=== PATIENT | female | born 1945 | race Caucasian/White ===

== ENCOUNTER 2017-06-24 09:56 | Emergency (ER) | payer MEDICARE, OTHER ==
[~2017-06-24] VITALS: Ht 154.9 cm; Wt 66.0 kg
[~2017-06-24 09:56] MED LIST: ATOR40TA78 PO; CEFD300C37 PO; CEPH-376 PO; FERR325T18 PO; GABA600T2 PO; GLIP10TA13 PO; HYDR-3240 PO; INSU100C SQ-INSULIN; INSU100I28 SQ-INSULIN; INSU100V5 SQ-INSULIN; INSU100V8 SQ; LEVO50TA PO; LEVO75TA PO; LISI-167 PO; TRAZ50TA18 PO; vitamin b12 PO
[2017-06-24 09:59] VITALS: BP 154/72
[2017-06-24] MEDS ORDERED: ALBUTEROL/IPRATROPIUM 2.5MG/0.5MG, 3 ML ONE (10:29)
[2017-06-24] MEDS ORDERED: ALBUTEROL/IPRATROPIUM 2.5MG/0.5MG, 3 ML NPPB ONE (10:30)
== END 2017-06-24 11:36 | disposition home or self-care (01) ==
LOC: ED 11:30
DX: J45.909 Unspecified asthma, uncomplicated (principal); E11.9 Type 2 diabetes mellitus without complications; A48.8 Other specified bacterial diseases; I25.10 Atherosclerotic heart disease of native coronary artery without angina pectoris
CPT/HCPCS: 71020; 82962; 94640; 99284; J7620

== ENCOUNTER 2020-01-07 11:16 | Emergency (ER) | payer MEDICARE, OTHER ==
[~2020-01-07] VITALS: Ht 154.9 cm; Wt 66.0 kg
[~2020-01-07 11:16] MED LIST changes: +ACET325T26 PO; +ACID1TAB7 PO; +BISA10SU4 PR; +CEFT2FRO2 IVPB; +FLUT1AER INH; -GABA600T2 PO; +GABA600T7 PO; +GLIP5TAB10 PO; +METH500T7 PO; +POLY17PO5 PO; +SENN-193 PO; +SERT25TA3 PO; +TRAM50TA2 PO; -TRAZ50TA18 PO; +TRAZ50TA66 PO
--- NOTE | 2020-01-07 12:13 | NUR ---
PT HAS MULTIPLE CO. PT HAS NO APPETITE AND HAS NOT BEEN TAKING MEDS "BECAUSE I DONT WANT TO" PT HAS BED BUGS. RN VISULIZED BUG CRAWLING ON SHEETS, PT HAS MULTIPLE BITES ON SHOULDERS, ARMS LEGS. DENIES CP OR SOB.
[2020-01-07 12:37] VITALS: BP 136/77
--- NOTE | 2020-01-07 12:38 | NUR ---
PT REFUSING TO USE SOAP AND WASH HER HAIR FOR BUGS. PT WANTS TO LEAVE. AWARE. OK W PT LEAVING.
== END 2020-01-07 13:22 | disposition left against medical advice (07) ==
LOC: ED 13:16
DX: L50.9 Urticaria, unspecified (principal); R11.2 Nausea with vomiting, unspecified; R63.0 Anorexia; R19.7 Diarrhea, unspecified; R94.31 Abnormal electrocardiogram [ECG] [EKG]; E11.9 Type 2 diabetes mellitus without complications
CPT/HCPCS: 93005; 99283

== ENCOUNTER 2020-03-02 15:33 | Emergency (ER) | payer MEDICARE, OTHER ==
[~2020-03-02] VITALS: Ht 154.9 cm; Wt 70.0 kg
--- NOTE | 2020-03-02 15:46 | NUR ---
BIB [facility] FROM HOME. PT C/O GENERAL FATIGUE OVER LAST FEW DAY AND WORSE TODAY. PT STATES SOMETIMES DIZZY WHEN AMBULATING. PER DIEM RN [facility]: PIV 20G RAC. PT CONNECTED TO MONITORING. CALL LIGHT IN REACH.
--- NOTE | 2020-03-02 15:57 | NUR ---
PT WEARING BASELINE OXYGEN 2L.
[2020-03-02 16:58] LABS: BASOPHILS # (AUTO) 0.03 x10^3/uL (0-0.1); BASOPHILS % (AUTO) 0 % (0-1); EOSINOPHILS # (AUTO) 0.16 x10^3/uL (0-0.4); EOSINOPHILS % (AUTO) 2 % (1-7); LYMPHOCYTES # (AUTO) 1.49 x10^3/uL (1-3.4); LYMPHOCYTES % (AUTO) 18 % (22-44); MD NO; MEAN CORPUSCULAR HEMOGLOBIN 32.5 pg (27.0-34.8); MEAN CORPUSCULAR HGB CONC 32.7 g/dL (32.4-35.8); MEAN CORPUSCULAR VOLUME 99.6 fL (80-100); MEAN PLATELET VOLUME 7.7 fL (7.4-10.4); MONOCYTES # (AUTO) 0.57 x10^3/uL (0.2-0.8); MONOCYTES % (AUTO) 7 % (2-9); NEUTROPHILS # (AUTO) 6.03 x10^3/uL (1.8-6.8); NEUTROPHILS % (AUTO) 73 % (42-75); PLATELET COUNT 281 x10^3/uL (130-400); RED BLOOD COUNT 3.57 x10^6/uL (3.82-5.3); RED CELL DISTRIBUTION WIDTH 14.2 % (9.6-15.2)
[2020-03-02 17:10] LABS: ALBUMIN 2.9 g/dL (3.4-5.0); ANION GAP 5 mmol/L (5-15); CALCIUM 8.5 mg/dL (8.5-10.1); CHLORIDE 106 mmol/L (98-107)
[2020-03-02 17:13] VITALS: BP 124/52
--- NOTE | 2020-03-02 17:15 | NUR ---
BEDSIDE COMMODE PROVIDED FOR PT TO PROVIDE URINE SAMPLE. UA COLLECTED AND TAKEN TO LAB.
[2020-03-02 17:20] LABS: ALANINE AMINOTRANSFERASE 23 U/L (12-78); ALKALINE PHOSPHATASE 113 U/L (45-117); BILIRUBIN,TOTAL 0.3 mg/dL (0.2-1.0); CREATININE 1.84 mg/dL (0.55-1.02); FREE T4 (FREE THYROXINE) 1.04 ng/dL (0.76-1.46); TOTAL PROTEIN 7.2 g/dL (6.4-8.2)
[2020-03-02 17:25] LABS: SALICYLATE LEVEL < 1.7 mg/dL (2.8-20.0)
[2020-03-02 17:26] LABS: MICROSCOPIC AUTO
[2020-03-02 17:37] LABS: AMPHETAMINE SCREEN, URINE Negative (Negative); BARBITURATE SCREEN, URINE Negative (Negative); BENZODIAZEPINE SCREEN, URINE Negative (Negative); CANNABINOID SCREEN, URINE Negative (Negative); COCAINE SCREEN, URINE Negative (Negative); METHADONE SCREEN, URINE Negative (Negative); OPIATE SCREEN, URINE Negative (Negative)
--- NOTE | 2020-03-02 17:47 | NUR ---
ALL RESULTS ARE BACK AT THIS TIME. CHART UP FOR RECHECK.
--- NOTE | 2020-03-02 18:01 | NUR ---
RECEIVED NEW ORDER FOR CT.
--- NOTE | 2020-03-02 18:28 | NUR ---
ALL RESULTS ARE BACK AT THIS TIME. CHART UP FOR RECHECK.
[2020-03-02] MEDS ORDERED: MECLIZINE CHEWABLE 25 MG TAB ONE (18:47)
[2020-03-02] MEDS ORDERED: MECLIZINE CHEWABLE 25 MG TAB PO ONE (19:00)
--- NOTE | 2020-03-02 19:34 | NUR ---
Break RN: patient able to ambulate without assistance. still having pain on her head and slight dizziness.
== END 2020-03-02 20:34 | disposition home or self-care (01) ==
LOC: ED 17:39
DX: R42 Dizziness and giddiness (principal); R53.1 Weakness; R53.83 Other fatigue; R51 Headache; I10 Essential (primary) hypertension; I25.2 Old myocardial infarction; I95.9 Hypotension, unspecified; J45.909 Unspecified asthma, uncomplicated; E11.65 Type 2 diabetes mellitus with hyperglycemia; Z86.73 Personal history of transient ischemic attack (TIA), and cerebral infarction without residual deficits; Z86.39 Personal history of other endocrine, nutritional and metabolic disease; Z90.710 Acquired absence of both cervix and uterus
CPT/HCPCS: 70450; 80053; 80307; 81001; 82962; 84439; 84443; 85025; 87086; 99284

== ENCOUNTER 2020-03-28 04:21 | Inpatient (IN) | payer MEDICARE, OTHER ==
[~2020-03-28] VITALS: Ht 175.3 cm; Wt 72.2 kg
--- NOTE | 2020-03-28 04:37 | NUR ---
PT BIB AMBULANCE FOR REPORTED 3 DAY FEVER FROM [facility]. PT IN GOWN IN [facility] AND PLACED ON 3L NC 02. PT EDUCATED ON ER PROCESS AND POC. PT ATTACHED TO VS MONITORS. VSS. PT HAS CALL LIGHT WITHIN REACH. AWAITING ERP AT THIS TIME.
[2020-03-28] MEDS ORDERED: SODIUM CHLORIDE FLUSH 10ML SYR IVF ONE (05:30)
[2020-03-28 05:50] LABS: BASOPHILS # (AUTO) 0.04 x10^3/uL (0-0.1); BASOPHILS % (AUTO) 0 % (0-1); EOSINOPHILS # (AUTO) 0.09 x10^3/uL (0-0.4); EOSINOPHILS % (AUTO) 1 % (1-7); LYMPHOCYTES # (AUTO) 1.13 x10^3/uL (1-3.4); LYMPHOCYTES % (AUTO) 7 % (22-44); MD NO; MEAN CORPUSCULAR HEMOGLOBIN 32.2 pg (27.0-34.8); MEAN CORPUSCULAR HGB CONC 33.2 g/dL (32.4-35.8); MEAN PLATELET VOLUME 7.3 fL (7.4-10.4); MONOCYTES # (AUTO) 1.06 x10^3/uL (0.2-0.8); MONOCYTES % (AUTO) 7 % (2-9); NEUTROPHILS # (AUTO) 14.04 x10^3/uL (1.8-6.8); NEUTROPHILS % (AUTO) 86 % (42-75); PLATELET COUNT 494 x10^3/uL (130-400); RED BLOOD COUNT 3.04 x10^6/uL (3.82-5.3); RED CELL DISTRIBUTION WIDTH 13.9 % (9.6-15.2)
[2020-03-28 05:58] LABS: ALANINE AMINOTRANSFERASE 16 U/L (12-78); ALBUMIN 1.7 g/dL (3.4-5.0); ANION GAP 9 mmol/L (5-15); CALCIUM 7.8 mg/dL (8.5-10.1); CHLORIDE 95 mmol/L (98-107); CREATININE 1.49 mg/dL (0.55-1.02)
--- NOTE | 2020-03-28 06:03 | NUR ---
PT ASLEEP IN [facility] AT THIS TIME; [place]. VSS AND UPDATED IN EMR. PT HAS CALL LIGHT WITHIN REACH AT THIS TIME.
[2020-03-28 06:08] LABS: ALKALINE PHOSPHATASE 123 U/L (45-117); BILIRUBIN,TOTAL 0.5 mg/dL (0.2-1.0); TOTAL PROTEIN 6.7 g/dL (6.4-8.2)
[2020-03-28] MEDS ORDERED: CEFTRIAXONE PMX 1GM/50ML 50 ML ONE (06:17)
[2020-03-28] MEDS ORDERED: NS + 40MEQ KCL 1,000 ML IV ONE (06:23)
[2020-03-28] MEDS ORDERED: NS + 40MEQ KCL 1,000 ML IV SCH (06:30)
[2020-03-28] MEDS ORDERED: CEFTRIAXONE PMX 1GM/50ML 50 ML IV ONE (06:30)
[2020-03-28 07:00] LABS: HCT (SEDRATE) 29.5 % (34.6-47.8)
[2020-03-28 07:11] LABS: C-REACTIVE PROTEIN, QUANT > 19.00 mg/dL (0.02-0.49)
--- NOTE | 2020-03-28 07:16 | NUR ---
RECEIVED REPORT FROM TORIE KRISHNA RN. PT RESTING ON [place]. NADN. TATE.
[2020-03-28 07:22] LABS: % IRON SATURATION 16 % (20-55); IRON LEVEL 21 mcg/dL (50-170); TOTAL IRON BINDING CAPACITY 133 mcg/dL (250-450)
--- NOTE | 2020-03-28 07:28 | NUR ---
REPORT GIVEN TO ARTURO TORRES RN. ALL QUESTIONS ANSWERED. AWAITING PT TRANSPORT.
[2020-03-28 07:45] VITALS: BP 139/80
[2020-03-28] MEDS: SODIUM CHLORIDE 0.9% 1,000 ML IV SCH ×2 (10:39→14:45)
[2020-03-28] MEDS ORDERED: hydrALAzine 20 MG/ML, 1ML IVPush PRN (11:00)
[2020-03-28] MEDS ORDERED: ONDANSETRON 2MG/ML, 2ML IVPush PRN (11:00)
[2020-03-28] MEDS: FLUTICASONE/VILANTEROL 100-25MCG/INH INH SCH ×2 (11:00→20:28)
[2020-03-28] MEDS ORDERED: KETOROLAC 30 MG/1 ML IVPush PRN (12:00)
[2020-03-28] MEDS ORDERED: MAGNESIUM SULFATE/D5W 100 ML IV ONE (13:30)
[2020-03-28 13:35] VITALS: BP 120/54
[2020-03-28] MEDS: methylPREDNISolone SOD SUCC 40 MG/ML IV SCH (14:39)
[2020-03-28] MEDS: INSULIN LISPRO 100 UNITS/ML, PEN SQ-INSULIN SCH ×3 (15:13→20:28)
[2020-03-28 16:16] LABS: MICROSCOPIC AUTO
[2020-03-28 20:09] VITALS: BP 169/79
[2020-03-28] MEDS: ATORVASTATIN 40 MG TABLET PO SCH (20:28)
[2020-03-28] MEDS: TRAZODONE 100MG TABLET PO PRN (20:32)
[2020-03-28 21:53] VITALS: BP 163/74
[2020-03-29 01:42] VITALS: BP 160/64
[2020-03-29] MEDS: SODIUM CHLORIDE 0.9% 1,000 ML IV SCH ×2 (03:54)
[2020-03-29 06:03] LABS: ANION GAP 7 mmol/L (5-15); CALCIUM 8.2 mg/dL (8.5-10.1); CHLORIDE 105 mmol/L (98-107); CREATININE 1.15 mg/dL (0.55-1.02)
[2020-03-29 06:04] LABS: MEAN CORPUSCULAR HEMOGLOBIN 32.3 pg (27.0-34.8); MEAN PLATELET VOLUME 7.4 fL (7.4-10.4); PLATELET COUNT 467 x10^3/uL (130-400); RED BLOOD COUNT 3.13 x10^6/uL (3.82-5.3); RED CELL DISTRIBUTION WIDTH 13.5 % (9.6-15.2)
[2020-03-29 06:33] LABS: BASOPHILS % (AUTO) 0 % (0-1); EOSINOPHILS # (AUTO) 0.08 x10^3/uL (0-0.4); EOSINOPHILS % (AUTO) 1 % (1-7); LYMPHOCYTES # (AUTO) 0.36 x10^3/uL (1-3.4); LYMPHOCYTES % (AUTO) 3 % (22-44); MD SCAN; MONOCYTES # (AUTO) 0.29 x10^3/uL (0.2-0.8); MONOCYTES % (AUTO) 2 % (2-9); NEUTROPHILS # (AUTO) 12.55 x10^3/uL (1.8-6.8); NEUTROPHILS % (AUTO) 95 % (42-75)
[2020-03-29 06:48] VITALS: BP 178/74
[2020-03-29] MEDS: SENNA/DOCUSATE TABLET PO SCH (08:55)
[2020-03-29] MEDS: CEFTRIAXONE PMX 1GM/50ML 50 ML IV SCH (08:56)
[2020-03-29] MEDS: LEVOTHYROXINE 75 MCG TABLET PO SCH (08:56)
[2020-03-29] MEDS: SERTRALINE 50MG TABLET PO SCH (08:56)
[2020-03-29] MEDS: INSULIN LISPRO 100 UNITS/ML, PEN SQ-INSULIN SCH ×4 (08:57→22:27)
[2020-03-29] MEDS ORDERED: AMLODIPINE 5 MG TABLET PO SCH (09:00)
[2020-03-29] MEDS ORDERED: LISINOPRIL 5 MG TABLET PO SCH ×2 (09:00)
[2020-03-29] MEDS: FLUTICASONE/VILANTEROL 100-25MCG/INH INH SCH ×2 (09:00→21:46)
[2020-03-29 12:31] VITALS: BP 127/64
[2020-03-29] MEDS: methylPREDNISolone SOD SUCC 40 MG/ML IV SCH (14:31)
[2020-03-29 19:10] VITALS: BP 160/77
[2020-03-29] MEDS ORDERED: GABAPENTIN 300 MG CAPSULE PO SCH (22:00)
[2020-03-29] MEDS: GABAPENTIN 300 MG CAPSULE PO SCH (22:22)
[2020-03-29] MEDS: ATORVASTATIN 40 MG TABLET PO SCH (22:22)
[2020-03-29] MEDS: TRAZODONE 100MG TABLET PO PRN (22:22)
[2020-03-29] MEDS: INSULIN GLARGINE 100 UNITS/ML, PEN SQ-INSULIN SCH (22:28)
[2020-03-30 01:11] VITALS: BP 164/74
[2020-03-30 07:08] VITALS: BP 158/68
[2020-03-30] MEDS: FLUTICASONE/VILANTEROL 100-25MCG/INH INH SCH ×2 (08:39→20:15)
[2020-03-30] MEDS: SENNA/DOCUSATE TABLET PO SCH (09:00)
[2020-03-30] MEDS: SERTRALINE 50MG TABLET PO SCH (09:20)
[2020-03-30] MEDS: LEVOTHYROXINE 75 MCG TABLET PO SCH (09:20)
[2020-03-30] MEDS: GABAPENTIN 300 MG CAPSULE PO SCH ×3 (09:20→21:40)
[2020-03-30] MEDS: AMLODIPINE 10 MG TAB PO SCH (09:20)
[2020-03-30] MEDS: CHOLECALCIFEROL 5,000u TAB PO SCH (09:20)
[2020-03-30] MEDS: CEFTRIAXONE PMX 1GM/50ML 50 ML IV SCH (09:21)
[2020-03-30] MEDS: LISINOPRIL 5 MG TABLET PO SCH ×2 (09:21→21:40)
[2020-03-30] MEDS: INSULIN LISPRO 100 UNITS/ML, PEN SQ-INSULIN SCH ×4 (09:22→21:43)
[2020-03-30] MEDS: INSULIN GLARGINE 100 UNITS/ML, PEN SQ-INSULIN SCH ×2 (09:23→21:42)
[2020-03-30 13:20] VITALS: BP 113/64
[2020-03-30 15:58] LABS: ANA SCREEN NEGATIVE (Negative)
[2020-03-30 19:32] VITALS: BP 128/74
[2020-03-30] MEDS: ATORVASTATIN 40 MG TABLET PO SCH (21:40)
[2020-03-30] MEDS: TRAZODONE 100MG TABLET PO PRN (21:51)
[2020-03-31 01:02] VITALS: BP 154/72
[2020-03-31 06:40] VITALS: BP 150/72
[2020-03-31] MEDS: FLUTICASONE/VILANTEROL 100-25MCG/INH INH SCH ×2 (08:30→20:26)
[2020-03-31] MEDS: CHOLECALCIFEROL 5,000u TAB PO SCH (08:38)
[2020-03-31] MEDS: CEFTRIAXONE PMX 1GM/50ML 50 ML IV SCH (08:38)
[2020-03-31] MEDS: LEVOTHYROXINE 75 MCG TABLET PO SCH (08:38)
[2020-03-31] MEDS: SENNA/DOCUSATE TABLET PO SCH (08:38)
[2020-03-31] MEDS: AMLODIPINE 10 MG TAB PO SCH (08:38)
[2020-03-31] MEDS: LISINOPRIL 5 MG TABLET PO SCH ×2 (08:38→21:08)
[2020-03-31] MEDS: GABAPENTIN 300 MG CAPSULE PO SCH ×3 (08:39→21:08)
[2020-03-31] MEDS: INSULIN GLARGINE 100 UNITS/ML, PEN SQ-INSULIN SCH ×2 (08:40→21:07)
[2020-03-31] MEDS: INSULIN LISPRO 100 UNITS/ML, PEN SQ-INSULIN SCH ×4 (08:40→21:08)
[2020-03-31] MEDS: SERTRALINE 50MG TABLET PO SCH (08:42)
[2020-03-31 12:21] VITALS: BP 133/64
[2020-03-31 18:21] VITALS: BP 158/70
[2020-03-31] MEDS: ATORVASTATIN 40 MG TABLET PO SCH (21:08)
[2020-03-31 21:09] VITALS: BP 170/69
[2020-04-01 00:38] VITALS: BP 132/69
[2020-04-01] MEDS: FLUTICASONE/VILANTEROL 100-25MCG/INH INH SCH ×2 (07:10→19:40)
[2020-04-01 07:27] VITALS: BP 127/63
[2020-04-01] MEDS: CHOLECALCIFEROL 5,000u TAB PO SCH (07:55)
[2020-04-01] MEDS: CEFTRIAXONE PMX 1GM/50ML 50 ML IV SCH (07:55)
[2020-04-01] MEDS: LISINOPRIL 5 MG TABLET PO SCH ×2 (07:55→21:10)
[2020-04-01] MEDS: SENNA/DOCUSATE TABLET PO SCH (07:56)
[2020-04-01] MEDS: GABAPENTIN 300 MG CAPSULE PO SCH ×3 (07:56→21:10)
[2020-04-01] MEDS: LEVOTHYROXINE 75 MCG TABLET PO SCH (07:56)
[2020-04-01] MEDS: AMLODIPINE 10 MG TAB PO SCH (07:56)
[2020-04-01] MEDS: SERTRALINE 50MG TABLET PO SCH (07:56)
[2020-04-01] MEDS: INSULIN LISPRO 100 UNITS/ML, PEN SQ-INSULIN SCH ×4 (07:57→21:09)
[2020-04-01] MEDS: INSULIN GLARGINE 100 UNITS/ML, PEN SQ-INSULIN SCH ×2 (07:58→21:10)
[2020-04-01 10:46] LABS: ANION GAP 7 mmol/L (5-15); CALCIUM 8.9 mg/dL (8.5-10.1); CHLORIDE 106 mmol/L (98-107); CREATININE 1.05 mg/dL (0.55-1.02)
[2020-04-01 15:25] VITALS: BP 149/62
[2020-04-01 20:14] VITALS: BP 123/75
[2020-04-01] MEDS: ATORVASTATIN 40 MG TABLET PO SCH (21:10)
[2020-04-01] MEDS: TRAZODONE 100MG TABLET PO PRN (21:11)
[2020-04-02 00:26] VITALS: BP 156/83
[2020-04-02 08:17] VITALS: BP 165/71
[2020-04-02] MEDS: CHOLECALCIFEROL 5,000u TAB PO SCH (08:36)
[2020-04-02] MEDS: GABAPENTIN 300 MG CAPSULE PO SCH ×3 (08:36→21:27)
[2020-04-02] MEDS: AMLODIPINE 10 MG TAB PO SCH (08:36)
[2020-04-02] MEDS: LEVOTHYROXINE 75 MCG TABLET PO SCH (08:36)
[2020-04-02] MEDS: LISINOPRIL 5 MG TABLET PO SCH ×2 (08:36→21:27)
[2020-04-02] MEDS: INSULIN LISPRO 100 UNITS/ML, PEN SQ-INSULIN SCH ×4 (08:36→21:00)
[2020-04-02] MEDS: INSULIN GLARGINE 100 UNITS/ML, PEN SQ-INSULIN SCH ×2 (08:37→21:00)
[2020-04-02] MEDS: FLUTICASONE/VILANTEROL 100-25MCG/INH INH SCH ×2 (08:37→19:14)
[2020-04-02] MEDS: SERTRALINE 50MG TABLET PO SCH (08:40)
[2020-04-02] MEDS: SENNA/DOCUSATE TABLET PO SCH (08:42)
[2020-04-02 15:20] VITALS: BP 153/74
[2020-04-02] MEDS ORDERED: metFORMIN 500 MG TABLET PO SCH (17:00)
[2020-04-02 18:49] VITALS: BP 145/72
[2020-04-02] MEDS: ATORVASTATIN 40 MG TABLET PO SCH (21:27)
[2020-04-02] MEDS: TRAZODONE 100MG TABLET PO PRN (21:27)
[2020-04-03 00:20] VITALS: BP 153/78
[2020-04-03] MEDS: INSULIN LISPRO 100 UNITS/ML, PEN SQ-INSULIN SCH ×4 (07:00→19:35)
[2020-04-03] MEDS: LISINOPRIL 10 MG TABLET PO SCH ×2 (08:39→19:35)
[2020-04-03] MEDS: CHOLECALCIFEROL 5,000u TAB PO SCH (08:39)
[2020-04-03] MEDS: SENNA/DOCUSATE TABLET PO SCH (08:39)
[2020-04-03] MEDS: LEVOTHYROXINE 75 MCG TABLET PO SCH (08:39)
[2020-04-03] MEDS: SERTRALINE 50MG TABLET PO SCH (08:39)
[2020-04-03] MEDS: GABAPENTIN 300 MG CAPSULE PO SCH ×3 (08:39→19:34)
[2020-04-03] MEDS: AMLODIPINE 10 MG TAB PO SCH (08:39)
[2020-04-03] MEDS: INSULIN GLARGINE 100 UNITS/ML, PEN SQ-INSULIN SCH ×2 (08:40→19:36)
[2020-04-03] MEDS: FLUTICASONE/VILANTEROL 100-25MCG/INH INH SCH ×2 (09:00→20:05)
[2020-04-03 09:55] VITALS: BP 127/62
[2020-04-03 13:31] VITALS: BP 142/88
[2020-04-03 18:58] VITALS: BP 131/65
[2020-04-03] MEDS: ATORVASTATIN 40 MG TABLET PO SCH (19:34)
[2020-04-03] MEDS: TRAZODONE 100MG TABLET PO PRN (22:58)
[2020-04-04 01:16] VITALS: BP 135/71
[2020-04-04 06:45] VITALS: BP 147/54
[2020-04-04] MEDS: INSULIN LISPRO 100 UNITS/ML, PEN SQ-INSULIN SCH ×4 (07:00→20:11)
[2020-04-04] MEDS: SENNA/DOCUSATE TABLET PO SCH (09:00)
[2020-04-04] MEDS: FLUTICASONE/VILANTEROL 100-25MCG/INH INH SCH ×2 (09:00→20:10)
[2020-04-04] MEDS: AMLODIPINE 10 MG TAB PO SCH (09:23)
[2020-04-04] MEDS: SERTRALINE 50MG TABLET PO SCH (09:23)
[2020-04-04] MEDS: LISINOPRIL 10 MG TABLET PO SCH ×2 (09:23→20:11)
[2020-04-04] MEDS: LEVOTHYROXINE 75 MCG TABLET PO SCH (09:23)
[2020-04-04] MEDS: CHOLECALCIFEROL 5,000u TAB PO SCH (09:23)
[2020-04-04] MEDS: GABAPENTIN 300 MG CAPSULE PO SCH ×3 (09:24→20:10)
[2020-04-04] MEDS: INSULIN GLARGINE 100 UNITS/ML, PEN SQ-INSULIN SCH ×2 (09:38→20:10)
[2020-04-04 13:14] VITALS: BP 143/66
[2020-04-04] MEDS: ACETAMINOPHEN 325 MG TABLET PO PRN (16:54)
[2020-04-04 20:03] VITALS: BP 119/66
[2020-04-04] MEDS: ATORVASTATIN 40 MG TABLET PO SCH (20:11)
[2020-04-05 01:14] VITALS: BP 148/67
[2020-04-05] MEDS: TRAZODONE 100MG TABLET PO PRN (02:02)
[2020-04-05 06:43] VITALS: BP 151/86
[2020-04-05] MEDS: INSULIN LISPRO 100 UNITS/ML, PEN SQ-INSULIN SCH ×4 (08:37→21:00)
[2020-04-05] MEDS: FLUTICASONE/VILANTEROL 100-25MCG/INH INH SCH ×2 (09:15→20:26)
[2020-04-05] MEDS: CHOLECALCIFEROL 5,000u TAB PO SCH (09:32)
[2020-04-05] MEDS: SERTRALINE 50MG TABLET PO SCH (09:32)
[2020-04-05] MEDS: LEVOTHYROXINE 75 MCG TABLET PO SCH (09:32)
[2020-04-05] MEDS: AMLODIPINE 10 MG TAB PO SCH (09:32)
[2020-04-05] MEDS: GABAPENTIN 300 MG CAPSULE PO SCH ×3 (09:33→21:20)
[2020-04-05] MEDS: LISINOPRIL 10 MG TABLET PO SCH ×2 (09:33→21:20)
[2020-04-05] MEDS: SENNA/DOCUSATE TABLET PO SCH (09:33)
[2020-04-05] MEDS: INSULIN GLARGINE 100 UNITS/ML, PEN SQ-INSULIN SCH ×2 (09:33→21:21)
[2020-04-05 13:41] VITALS: BP 168/76
[2020-04-05 19:42] VITALS: BP 150/75
[2020-04-05] MEDS: ATORVASTATIN 40 MG TABLET PO SCH (21:20)
[2020-04-06 01:25] VITALS: BP 112/63
[2020-04-06 07:18] VITALS: BP 129/69
[2020-04-06] MEDS: GABAPENTIN 300 MG CAPSULE PO SCH ×3 (09:03→21:25)
[2020-04-06] MEDS: INSULIN LISPRO 100 UNITS/ML, PEN SQ-INSULIN SCH ×4 (09:03→21:27)
[2020-04-06] MEDS: SENNA/DOCUSATE TABLET PO SCH (09:03)
[2020-04-06] MEDS: LEVOTHYROXINE 75 MCG TABLET PO SCH (09:04)
[2020-04-06] MEDS: SERTRALINE 50MG TABLET PO SCH (09:04)
[2020-04-06] MEDS: AMLODIPINE 10 MG TAB PO SCH (09:04)
[2020-04-06] MEDS: LISINOPRIL 10 MG TABLET PO SCH ×2 (09:04→21:26)
[2020-04-06] MEDS: FLUTICASONE/VILANTEROL 100-25MCG/INH INH SCH ×2 (09:05→19:57)
[2020-04-06] MEDS: CHOLECALCIFEROL 5,000u TAB PO SCH (09:05)
[2020-04-06] MEDS: INSULIN GLARGINE 100 UNITS/ML, PEN SQ-INSULIN SCH ×2 (09:06→21:27)
[2020-04-06] MEDS: methylPREDNISolone SOD SUCC 125 MG/2 ML IV SCH ×2 (12:00→18:02)
[2020-04-06 12:15] VITALS: BP 181/70
[2020-04-06 20:15] VITALS: BP 122/54
[2020-04-06] MEDS: ATORVASTATIN 40 MG TABLET PO SCH (21:25)
[2020-04-06] MEDS: TRAZODONE 100MG TABLET PO PRN (21:25)
[2020-04-07 00:26] VITALS: BP 127/58
[2020-04-07] MEDS: methylPREDNISolone SOD SUCC 125 MG/2 ML IV SCH ×4 (00:30→18:51)
[2020-04-07 06:39] VITALS: BP 142/73
[2020-04-07] MEDS: CHOLECALCIFEROL 5,000u TAB PO SCH (08:47)
[2020-04-07] MEDS: LISINOPRIL 10 MG TABLET PO SCH ×2 (08:47→20:42)
[2020-04-07] MEDS: SENNA/DOCUSATE TABLET PO SCH (08:47)
[2020-04-07] MEDS: GABAPENTIN 300 MG CAPSULE PO SCH ×3 (08:48→20:41)
[2020-04-07] MEDS: SERTRALINE 50MG TABLET PO SCH (08:48)
[2020-04-07] MEDS: LEVOTHYROXINE 75 MCG TABLET PO SCH (08:48)
[2020-04-07] MEDS: AMLODIPINE 10 MG TAB PO SCH (08:48)
[2020-04-07] MEDS: INSULIN GLARGINE 100 UNITS/ML, PEN SQ-INSULIN SCH ×2 (08:49→20:43)
[2020-04-07] MEDS: INSULIN LISPRO 100 UNITS/ML, PEN SQ-INSULIN SCH ×4 (08:50→20:42)
[2020-04-07] MEDS: FLUTICASONE/VILANTEROL 100-25MCG/INH INH SCH ×2 (08:50→20:30)
[2020-04-07 12:52] VITALS: BP 122/68
[2020-04-07] MEDS ORDERED: FLU VACC QS2020-21(6MOS UP)/PF 60MCG/0.5 ML SYR IM ONE (13:00)
[2020-04-07 18:46] VITALS: BP 113/58
[2020-04-07] MEDS: ATORVASTATIN 40 MG TABLET PO SCH (20:41)
[2020-04-07] MEDS: TRAZODONE 100MG TABLET PO PRN (21:05)
[2020-04-08 00:22] VITALS: BP 117/66
[2020-04-08] MEDS: methylPREDNISolone SOD SUCC 125 MG/2 ML IV SCH ×4 (00:38→19:45)
[2020-04-08] MEDS: INSULIN LISPRO 100 UNITS/ML, PEN SQ-INSULIN SCH ×4 (08:31→20:42)
[2020-04-08 08:36] VITALS: BP 118/64
[2020-04-08] MEDS: FLUTICASONE/VILANTEROL 100-25MCG/INH INH SCH ×2 (09:00→20:50)
[2020-04-08] MEDS: SENNA/DOCUSATE TABLET PO SCH (09:00)
[2020-04-08] MEDS: GABAPENTIN 300 MG CAPSULE PO SCH ×3 (10:07→20:39)
[2020-04-08] MEDS: INSULIN GLARGINE 100 UNITS/ML, PEN SQ-INSULIN SCH ×2 (10:07→20:42)
[2020-04-08] MEDS: SERTRALINE 50MG TABLET PO SCH (10:08)
[2020-04-08] MEDS: AMLODIPINE 10 MG TAB PO SCH (10:08)
[2020-04-08] MEDS: LISINOPRIL 10 MG TABLET PO SCH ×2 (10:08→20:40)
[2020-04-08] MEDS: CHOLECALCIFEROL 5,000u TAB PO SCH (10:09)
[2020-04-08] MEDS: LEVOTHYROXINE 75 MCG TABLET PO SCH (10:09)
[2020-04-08 12:25] VITALS: BP 97/56
[2020-04-08 12:50] VITALS: BP 123/70
[2020-04-08 20:34] VITALS: BP 113/60
[2020-04-08] MEDS: ATORVASTATIN 40 MG TABLET PO SCH (20:40)
[2020-04-08] MEDS: TRAZODONE 100MG TABLET PO PRN (21:54)
[2020-04-09] MEDS: methylPREDNISolone SOD SUCC 125 MG/2 ML IV SCH ×2 (00:20→06:09)
[2020-04-09 00:31] VITALS: BP 112/65
[2020-04-09 06:49] VITALS: BP 118/66
[2020-04-09] MEDS: INSULIN LISPRO 100 UNITS/ML, PEN SQ-INSULIN SCH ×4 (08:10→20:09)
[2020-04-09] MEDS: INSULIN GLARGINE 100 UNITS/ML, PEN SQ-INSULIN SCH ×2 (08:10→20:09)
[2020-04-09] MEDS: FLUTICASONE/VILANTEROL 100-25MCG/INH INH SCH ×2 (08:12→20:00)
[2020-04-09] MEDS: SENNA/DOCUSATE TABLET PO SCH (08:13)
[2020-04-09] MEDS: CHOLECALCIFEROL 5,000u TAB PO SCH (08:13)
[2020-04-09] MEDS: GABAPENTIN 300 MG CAPSULE PO SCH ×3 (08:13→20:07)
[2020-04-09] MEDS: AMLODIPINE 10 MG TAB PO SCH (08:13)
[2020-04-09] MEDS: LISINOPRIL 10 MG TABLET PO SCH ×2 (08:13→20:08)
[2020-04-09] MEDS: SERTRALINE 50MG TABLET PO SCH (08:13)
[2020-04-09] MEDS: LEVOTHYROXINE 75 MCG TABLET PO SCH (08:13)
[2020-04-09 11:23] LABS: HCT (SEDRATE) 27.9 % (34.6-47.8)
[2020-04-09 13:37] VITALS: BP 111/51
[2020-04-09] MEDS: ACETAMINOPHEN 325 MG TABLET PO PRN (13:37)
[2020-04-09 13:49] VITALS: BP 123/61
[2020-04-09] MEDS: ATORVASTATIN 40 MG TABLET PO SCH (20:08)
[2020-04-09] MEDS: TRAZODONE 100MG TABLET PO PRN (21:43)
[2020-04-09 21:49] VITALS: BP 126/64
[2020-04-09] MEDS ORDERED: INSULIN LISPRO 100 UNIT/ML, 3ML VIAL SQ-INSULIN ONE (22:30)
[2020-04-09] MEDS ORDERED: LACTATED RINGERS 1,000 ML IVBOLUS ONE (22:30)
[2020-04-10 01:04] VITALS: BP 123/57
[2020-04-10 06:47] VITALS: BP 117/68
[2020-04-10] MEDS: FLUTICASONE/VILANTEROL 100-25MCG/INH INH SCH ×2 (09:08→19:00)
[2020-04-10] MEDS: SENNA/DOCUSATE TABLET PO SCH (09:25)
[2020-04-10] MEDS: INSULIN LISPRO 100 UNITS/ML, PEN SQ-INSULIN SCH ×4 (09:25→21:54)
[2020-04-10] MEDS: SERTRALINE 50MG TABLET PO SCH (09:25)
[2020-04-10] MEDS: AMLODIPINE 10 MG TAB PO SCH (09:26)
[2020-04-10] MEDS: LISINOPRIL 10 MG TABLET PO SCH ×2 (09:26→21:53)
[2020-04-10] MEDS: CHOLECALCIFEROL 5,000u TAB PO SCH (09:26)
[2020-04-10] MEDS: LEVOTHYROXINE 75 MCG TABLET PO SCH (09:26)
[2020-04-10] MEDS: GABAPENTIN 300 MG CAPSULE PO SCH ×3 (09:26→21:53)
[2020-04-10] MEDS: INSULIN GLARGINE 100 UNITS/ML, PEN SQ-INSULIN SCH ×2 (09:27→21:54)
[2020-04-10 12:11] VITALS: BP 114/69
[2020-04-10 20:02] VITALS: BP 126/60
[2020-04-10] MEDS: ATORVASTATIN 40 MG TABLET PO SCH (21:53)
[2020-04-10] MEDS: TRAZODONE 100MG TABLET PO PRN (21:57)
[2020-04-11 01:23] VITALS: BP 127/76
[2020-04-11 05:57] LABS: BASOPHILS % (AUTO) 0 % (0-1); EOSINOPHILS % (AUTO) 0 % (1-7); LYMPHOCYTES % (AUTO) 7 % (22-44); MEAN CORPUSCULAR HEMOGLOBIN 31.9 pg (27.0-34.8); MEAN CORPUSCULAR HGB CONC 33.3 g/dL (32.4-35.8); MEAN PLATELET VOLUME 7.7 fL (7.4-10.4); MONOCYTES % (AUTO) 9 % (2-9); NEUTROPHILS % (AUTO) 84 % (42-75); PLATELET COUNT 339 x10^3/uL (130-400); RED BLOOD COUNT 2.93 x10^6/uL (3.82-5.3); RED CELL DISTRIBUTION WIDTH 14.1 % (9.6-15.2)
[2020-04-11 06:10] LABS: ANION GAP 4 mmol/L (5-15); CALCIUM 8.8 mg/dL (8.5-10.1); CHLORIDE 104 mmol/L (98-107)
[2020-04-11 06:11] LABS: CREATININE 1.14 mg/dL (0.55-1.02); MD NO
[2020-04-11 06:53] VITALS: BP 113/67
[2020-04-11] MEDS: INSULIN LISPRO 100 UNITS/ML, PEN SQ-INSULIN SCH ×4 (07:00→22:38)
[2020-04-11] MEDS: LISINOPRIL 10 MG TABLET PO SCH ×2 (08:09→22:41)
[2020-04-11] MEDS: AMLODIPINE 10 MG TAB PO SCH (08:09)
[2020-04-11] MEDS: GABAPENTIN 300 MG CAPSULE PO SCH ×3 (08:09→22:40)
[2020-04-11] MEDS: SERTRALINE 50MG TABLET PO SCH (08:09)
[2020-04-11] MEDS: SENNA/DOCUSATE TABLET PO SCH (08:09)
[2020-04-11] MEDS: LEVOTHYROXINE 75 MCG TABLET PO SCH (08:09)
[2020-04-11] MEDS: CHOLECALCIFEROL 5,000u TAB PO SCH (08:09)
[2020-04-11] MEDS: FLUTICASONE/VILANTEROL 100-25MCG/INH INH SCH ×2 (09:00→20:27)
[2020-04-11] MEDS: HEPARIN 5,000 UNITS/ML, 1ML SQ SCH ×2 (09:35→22:40)
[2020-04-11] MEDS: INSULIN GLARGINE 100 UNITS/ML, PEN SQ-INSULIN SCH ×2 (09:46→22:37)
[2020-04-11 12:29] VITALS: BP 137/67
[2020-04-11 19:40] VITALS: BP 127/58
[2020-04-11] MEDS: TRAZODONE 100MG TABLET PO PRN (22:40)
[2020-04-11] MEDS: ATORVASTATIN 40 MG TABLET PO SCH (22:41)
[2020-04-12 00:48] VITALS: BP 109/48
[2020-04-12] MEDS: INSULIN LISPRO 100 UNITS/ML, PEN SQ-INSULIN SCH ×4 (07:00→21:15)
[2020-04-12] MEDS: FLUTICASONE/VILANTEROL 100-25MCG/INH INH SCH ×2 (07:30→19:30)
[2020-04-12 08:19] VITALS: BP 119/81
[2020-04-12] MEDS: INSULIN GLARGINE 100 UNITS/ML, PEN SQ-INSULIN SCH ×2 (08:51→21:15)
[2020-04-12] MEDS: HEPARIN 5,000 UNITS/ML, 1ML SQ SCH ×2 (08:52→21:14)
[2020-04-12] MEDS: LEVOTHYROXINE 75 MCG TABLET PO SCH (08:52)
[2020-04-12] MEDS: CHOLECALCIFEROL 5,000u TAB PO SCH (08:53)
[2020-04-12] MEDS: SERTRALINE 50MG TABLET PO SCH (08:53)
[2020-04-12] MEDS: AMLODIPINE 10 MG TAB PO SCH (08:54)
[2020-04-12] MEDS: GABAPENTIN 300 MG CAPSULE PO SCH ×3 (08:54→21:13)
[2020-04-12] MEDS: SENNA/DOCUSATE TABLET PO SCH (08:54)
[2020-04-12] MEDS: LISINOPRIL 10 MG TABLET PO SCH ×2 (08:54→21:14)
[2020-04-12 13:17] VITALS: BP 134/74
[2020-04-12 20:00] VITALS: BP 150/72
[2020-04-12] MEDS: TRAZODONE 100MG TABLET PO PRN (21:14)
[2020-04-12] MEDS: ATORVASTATIN 40 MG TABLET PO SCH (21:14)
[2020-04-13] MEDS ORDERED: KETOROLAC 30 MG/1 ML IVPush PRN
[2020-04-13 00:01] VITALS: BP 128/63
[2020-04-13] MEDS: INSULIN LISPRO 100 UNITS/ML, PEN SQ-INSULIN SCH ×4 (07:00→21:36)
[2020-04-13 07:16] VITALS: BP 118/65
[2020-04-13] MEDS: SERTRALINE 50MG TABLET PO SCH (08:27)
[2020-04-13] MEDS: GABAPENTIN 300 MG CAPSULE PO SCH ×3 (08:27→21:25)
[2020-04-13] MEDS: LISINOPRIL 10 MG TABLET PO SCH ×2 (08:27→21:25)
[2020-04-13] MEDS: LEVOTHYROXINE 75 MCG TABLET PO SCH (08:27)
[2020-04-13] MEDS: CHOLECALCIFEROL 5,000u TAB PO SCH (08:27)
[2020-04-13] MEDS: SENNA/DOCUSATE TABLET PO SCH (08:28)
[2020-04-13] MEDS: HEPARIN 5,000 UNITS/ML, 1ML SQ SCH ×2 (08:28→21:26)
[2020-04-13] MEDS: AMLODIPINE 10 MG TAB PO SCH (08:28)
[2020-04-13] MEDS ORDERED: FLUTICASONE/VILANTEROL 100-25MCG/INH INH SCH (11:00)
[2020-04-13] MEDS: INSULIN GLARGINE 100 UNITS/ML, PEN SQ-INSULIN SCH ×2 (11:03→21:37)
[2020-04-13 12:31] VITALS: BP 126/67
[2020-04-13 18:46] VITALS: BP 148/70
[2020-04-13] MEDS: ATORVASTATIN 40 MG TABLET PO SCH (21:25)
[2020-04-13] MEDS: TRAZODONE 100MG TABLET PO PRN (21:34)
[2020-04-14 00:49] VITALS: BP 144/63
[2020-04-14] MEDS: INSULIN LISPRO 100 UNITS/ML, PEN SQ-INSULIN SCH ×4 (07:00→20:33)
[2020-04-14 07:29] VITALS: BP 147/61
[2020-04-14] MEDS: GABAPENTIN 300 MG CAPSULE PO SCH ×3 (07:50→20:36)
[2020-04-14] MEDS: SENNA/DOCUSATE TABLET PO SCH (07:50)
[2020-04-14] MEDS: LISINOPRIL 10 MG TABLET PO SCH ×2 (07:50→20:36)
[2020-04-14] MEDS: LEVOTHYROXINE 75 MCG TABLET PO SCH (07:50)
[2020-04-14] MEDS: AMLODIPINE 10 MG TAB PO SCH (07:50)
[2020-04-14] MEDS: HEPARIN 5,000 UNITS/ML, 1ML SQ SCH ×2 (07:51→20:35)
[2020-04-14] MEDS: CHOLECALCIFEROL 5,000u TAB PO SCH (07:51)
[2020-04-14] MEDS: INSULIN GLARGINE 100 UNITS/ML, PEN SQ-INSULIN SCH ×2 (07:51→20:34)
[2020-04-14] MEDS: SERTRALINE 50MG TABLET PO SCH (07:51)
[2020-04-14 12:21] VITALS: BP 132/60
[2020-04-14 15:32] LABS: MICROSCOPIC NOT IND
[2020-04-14 18:39] VITALS: BP 132/70
[2020-04-14] MEDS: CYCLOBENZAPRINE 10 MG TABLET PO PRN (20:35)
[2020-04-14] MEDS: TRAZODONE 100MG TABLET PO PRN (20:35)
[2020-04-14] MEDS: ATORVASTATIN 40 MG TABLET PO SCH (20:36)
[2020-04-14] MEDS: CLOTRIM/BETAMETH 1%/0.05% CRM TP SCH (21:00)
[2020-04-15 00:39] VITALS: BP 146/64
[2020-04-15] MEDS: CLOTRIM/BETAMETH 1%/0.05% CRM TP SCH ×2 (01:32→19:40)
[2020-04-15 06:51] VITALS: BP 120/55
[2020-04-15] MEDS: INSULIN LISPRO 100 UNITS/ML, PEN SQ-INSULIN SCH ×4 (07:00→21:35)
[2020-04-15] MEDS ORDERED: FLUTICASONE/VILANTEROL 100-25MCG/INH INH SCH (08:00)
[2020-04-15] MEDS: SENNA/DOCUSATE TABLET PO SCH (08:23)
[2020-04-15] MEDS: CHOLECALCIFEROL 5,000u TAB PO SCH (08:24)
[2020-04-15] MEDS: GABAPENTIN 300 MG CAPSULE PO SCH ×3 (08:24→19:40)
[2020-04-15] MEDS: SERTRALINE 50MG TABLET PO SCH (08:24)
[2020-04-15] MEDS: LISINOPRIL 10 MG TABLET PO SCH ×2 (08:24→19:40)
[2020-04-15] MEDS: HEPARIN 5,000 UNITS/ML, 1ML SQ SCH ×2 (08:24→19:40)
[2020-04-15] MEDS: LEVOTHYROXINE 75 MCG TABLET PO SCH (08:24)
[2020-04-15] MEDS: AMLODIPINE 10 MG TAB PO SCH (08:25)
[2020-04-15] MEDS: INSULIN GLARGINE 100 UNITS/ML, PEN SQ-INSULIN SCH ×2 (08:31→21:36)
[2020-04-15] MEDS ORDERED: FLUTICASONE/VILANTEROL 100-25MCG/INH INH PRN (09:30)
[2020-04-15 13:31] VITALS: BP 118/53
[2020-04-15 18:38] VITALS: BP 124/49
[2020-04-15] MEDS: ATORVASTATIN 40 MG TABLET PO SCH (19:40)
[2020-04-15] MEDS: CYCLOBENZAPRINE 10 MG TABLET PO PRN (21:35)
[2020-04-15] MEDS: TRAZODONE 100MG TABLET PO PRN (21:36)
[2020-04-15 22:05] LABS: CLOSTRIDIUM DIFFICILE ANTIGEN NEGATIVE; CLOSTRIDIUM DIFFICILE TOXIN NEGATIVE (Negative)
[2020-04-16 01:35] VITALS: BP 132/60
[2020-04-16] MEDS: INSULIN LISPRO 100 UNITS/ML, PEN SQ-INSULIN SCH ×4 (07:00→20:55)
[2020-04-16 07:31] VITALS: BP 127/62
[2020-04-16] MEDS: SENNA/DOCUSATE TABLET PO SCH (09:00)
[2020-04-16] MEDS: HEPARIN 5,000 UNITS/ML, 1ML SQ SCH ×2 (09:07→20:48)
[2020-04-16] MEDS: SERTRALINE 50MG TABLET PO SCH (09:08)
[2020-04-16] MEDS: LEVOTHYROXINE 75 MCG TABLET PO SCH (09:08)
[2020-04-16] MEDS: GABAPENTIN 300 MG CAPSULE PO SCH ×3 (09:08→20:48)
[2020-04-16] MEDS: LISINOPRIL 10 MG TABLET PO SCH ×2 (09:08→20:49)
[2020-04-16] MEDS: CHOLECALCIFEROL 5,000u TAB PO SCH (09:10)
[2020-04-16] MEDS: AMLODIPINE 10 MG TAB PO SCH (09:11)
[2020-04-16] MEDS: INSULIN GLARGINE 100 UNITS/ML, PEN SQ-INSULIN SCH ×2 (10:06→20:56)
[2020-04-16] MEDS: CLOTRIM/BETAMETH 1%/0.05% CRM TP SCH ×2 (10:09→20:50)
[2020-04-16 15:39] VITALS: BP 129/64
[2020-04-16 20:00] VITALS: BP 132/73
[2020-04-16 20:18] VITALS: BP 115/70
[2020-04-16] MEDS: ATORVASTATIN 40 MG TABLET PO SCH (20:49)
[2020-04-16] MEDS: TRAZODONE 100MG TABLET PO PRN (20:49)
[2020-04-16] MEDS: CYCLOBENZAPRINE 10 MG TABLET PO PRN (20:52)
[2020-04-17 00:06] VITALS: BP 126/72
[2020-04-17 06:58] VITALS: BP 121/66
[2020-04-17] MEDS: INSULIN LISPRO 100 UNITS/ML, PEN SQ-INSULIN SCH ×4 (08:27→20:37)
[2020-04-17] MEDS: LISINOPRIL 10 MG TABLET PO SCH ×2 (08:30→20:35)
[2020-04-17] MEDS: AMLODIPINE 10 MG TAB PO SCH (08:30)
[2020-04-17] MEDS: GABAPENTIN 300 MG CAPSULE PO SCH ×3 (08:30→20:35)
[2020-04-17] MEDS: SERTRALINE 50MG TABLET PO SCH (08:30)
[2020-04-17] MEDS: LEVOTHYROXINE 75 MCG TABLET PO SCH (08:32)
[2020-04-17] MEDS: SENNA/DOCUSATE TABLET PO SCH (08:32)
[2020-04-17] MEDS: CLOTRIM/BETAMETH 1%/0.05% CRM TP SCH ×2 (08:33→20:52)
[2020-04-17] MEDS: HEPARIN 5,000 UNITS/ML, 1ML SQ SCH ×2 (08:33→20:35)
[2020-04-17] MEDS: INSULIN GLARGINE 100 UNITS/ML, PEN SQ-INSULIN SCH ×2 (08:37→20:37)
[2020-04-17] MEDS: CHOLECALCIFEROL 5,000u TAB PO SCH (08:43)
[2020-04-17] MEDS: CYCLOBENZAPRINE 10 MG TABLET PO PRN (09:56)
[2020-04-17 12:15] VITALS: BP 113/66
--- NOTE | 2020-04-17 16:26 | NUR ---
Posted activity sheet recommending up to chair for meals under 1.5 hours and ambulation into bathroom for toileting Addendum: 04/17/20 at 1629 by Bienvenido Callaway PT Amended: Links added.
[2020-04-17 19:34] VITALS: BP 127/61
[2020-04-17] MEDS: ATORVASTATIN 40 MG TABLET PO SCH (20:35)
[2020-04-17] MEDS: TRAZODONE 100MG TABLET PO PRN (20:52)
[2020-04-18 01:07] VITALS: BP 112/65
[2020-04-18 06:51] VITALS: BP 116/65
[2020-04-18] MEDS: CLOTRIM/BETAMETH 1%/0.05% CRM TP SCH ×2 (08:10→20:11)
[2020-04-18] MEDS: LEVOTHYROXINE 75 MCG TABLET PO SCH (08:11)
[2020-04-18] MEDS: LISINOPRIL 10 MG TABLET PO SCH ×2 (08:11→20:10)
[2020-04-18] MEDS: CHOLECALCIFEROL 5,000u TAB PO SCH (08:11)
[2020-04-18] MEDS: SERTRALINE 50MG TABLET PO SCH (08:11)
[2020-04-18] MEDS: SENNA/DOCUSATE TABLET PO SCH (08:11)
[2020-04-18] MEDS: INSULIN GLARGINE 100 UNITS/ML, PEN SQ-INSULIN SCH ×2 (08:12→20:40)
[2020-04-18] MEDS: INSULIN LISPRO 100 UNITS/ML, PEN SQ-INSULIN SCH ×4 (08:12→20:11)
[2020-04-18] MEDS: GABAPENTIN 300 MG CAPSULE PO SCH ×3 (08:12→20:09)
[2020-04-18] MEDS: AMLODIPINE 10 MG TAB PO SCH (08:12)
[2020-04-18] MEDS: HEPARIN 5,000 UNITS/ML, 1ML SQ SCH ×2 (08:16→20:10)
[2020-04-18 12:00] VITALS: BP 119/70
[2020-04-18 18:48] VITALS: BP 112/62
[2020-04-18] MEDS: TRAZODONE 100MG TABLET PO PRN (20:09)
[2020-04-18 20:10] VITALS: BP 146/56
[2020-04-18] MEDS: ATORVASTATIN 40 MG TABLET PO SCH (20:10)
[2020-04-18] MEDS ORDERED: CALCIUM CARBONATE 500 MG TAB.CHEW ONE (23:54)
[2020-04-19] MEDS ORDERED: CALCIUM CARBONATE 500 MG TAB.CHEW PO PRN
[2020-04-19 00:03] VITALS: BP 111/60
[2020-04-19] MEDS: INSULIN LISPRO 100 UNITS/ML, PEN SQ-INSULIN SCH ×4 (07:00→20:27)
[2020-04-19 07:24] VITALS: BP 131/57
[2020-04-19] MEDS: SERTRALINE 50MG TABLET PO SCH (08:32)
[2020-04-19] MEDS: CHOLECALCIFEROL 5,000u TAB PO SCH (08:32)
[2020-04-19] MEDS: AMLODIPINE 10 MG TAB PO SCH (08:33)
[2020-04-19] MEDS: LISINOPRIL 10 MG TABLET PO SCH ×2 (08:33→20:21)
[2020-04-19] MEDS: LEVOTHYROXINE 75 MCG TABLET PO SCH (08:33)
[2020-04-19] MEDS: GABAPENTIN 300 MG CAPSULE PO SCH ×3 (08:33→20:20)
[2020-04-19] MEDS: HEPARIN 5,000 UNITS/ML, 1ML SQ SCH ×2 (08:34→20:22)
[2020-04-19] MEDS: INSULIN GLARGINE 100 UNITS/ML, PEN SQ-INSULIN SCH ×2 (08:35→20:26)
[2020-04-19] MEDS: SENNA/DOCUSATE TABLET PO SCH (08:36)
[2020-04-19] MEDS: CLOTRIM/BETAMETH 1%/0.05% CRM TP SCH ×2 (08:37→20:22)
[2020-04-19 13:11] VITALS: BP 128/57
[2020-04-19 19:45] VITALS: BP 140/62
[2020-04-19] MEDS: ATORVASTATIN 40 MG TABLET PO SCH (20:21)
[2020-04-19] MEDS: TRAZODONE 100MG TABLET PO PRN (20:21)
[2020-04-20 01:18] VITALS: BP 144/70
[2020-04-20] MEDS: INSULIN LISPRO 100 UNITS/ML, PEN SQ-INSULIN SCH ×2 (07:00→11:00)
[2020-04-20 07:33] VITALS: BP 112/64
[2020-04-20] MEDS: INSULIN GLARGINE 100 UNITS/ML, PEN SQ-INSULIN SCH (08:34)
[2020-04-20] MEDS: LEVOTHYROXINE 75 MCG TABLET PO SCH (08:35)
[2020-04-20] MEDS: GABAPENTIN 300 MG CAPSULE PO SCH (08:36)
[2020-04-20] MEDS: SENNA/DOCUSATE TABLET PO SCH ×2 (08:36→09:00)
[2020-04-20] MEDS: LISINOPRIL 10 MG TABLET PO SCH (08:38)
[2020-04-20] MEDS: CHOLECALCIFEROL 5,000u TAB PO SCH (08:38)
[2020-04-20] MEDS: AMLODIPINE 10 MG TAB PO SCH (08:38)
[2020-04-20] MEDS: CLOTRIM/BETAMETH 1%/0.05% CRM TP SCH (08:39)
[2020-04-20] MEDS: HEPARIN 5,000 UNITS/ML, 1ML SQ SCH (08:39)
[2020-04-20] MEDS: SERTRALINE 50MG TABLET PO SCH (08:39)
[2020-04-20] MEDS ORDERED: AMLO10TA8 PO (11:50)
[2020-04-20] MEDS ORDERED: CLOT15CR6 TP (11:50)
[2020-04-20] MEDS ORDERED: PRED10TA14 PO (11:50)
[2020-04-20] MEDS ORDERED: GLIP5TAB10 PO (11:50)
[2020-04-20 12:31] VITALS: BP 158/76
[2020-04-21] MEDS ORDERED: LEVOTHYROXINE 75 MCG TABLET PO SCH (06:00)
== END 2020-04-20 13:19 | disposition home health service (06) | DRG 871 ==
LOC: ED 05:32 → EDIP 07:03 → 3N 07:49 → 4WST 04-16 19:55 → DCLOUNGE 04-20 13:05
PROVIDERS: ADMIT Internal Medicine; ATTEND Hospitalist
DX: A41.9 Sepsis, unspecified organism (principal); N17.0 Acute kidney failure with tubular necrosis; E43 Unspecified severe protein-calorie malnutrition; E87.1 Hypo-osmolality and hyponatremia; E83.42 Hypomagnesemia; E11.40 Type 2 diabetes mellitus with diabetic neuropathy, unspecified; F32.9 Major depressive disorder, single episode, unspecified; E87.6 Hypokalemia; I10 Essential (primary) hypertension; M19.90 Unspecified osteoarthritis, unspecified site; M35.3 Polymyalgia rheumatica; M77.9 Enthesopathy, unspecified; G89.29 Other chronic pain; T38.0X5A Adverse effect of glucocorticoids and synthetic analogues, initial encounter; Z23 Encounter for immunization; I25.2 Old myocardial infarction; Z68.23 Body mass index [BMI] 23.0-23.9, adult; Z79.4 Long term (current) use of insulin; Z86.73 Personal history of transient ischemic attack (TIA), and cerebral infarction without residual deficits; Z90.710 Acquired absence of both cervix and uterus; Z88.5 Allergy status to narcotic agent
CPT/HCPCS: 36415; 71045; 80048; 80053; 81001; 81003; 82306; 82550; 82728; 82947; 82962; 83036; 83540; 83550; 83605; 83735; 84100; 84145; 84443; 84550; 85025; 85651; 86038; 86140; 86200; 86430; 86747; 87040; 87081; 87324; 87880; 90686; 93005; 94640; 96374; 96375; 99285; G0378; J0696; J1644; J1885; J2405; J1815; J2920; J2930; J3480; J7030; J7120; J7512

== ENCOUNTER 2020-07-07 16:37 | Emergency (ER) | payer MEDICARE, OTHER ==
[~2020-07-07] VITALS: Ht 157.5 cm; Wt 64.0 kg
[~2020-07-07 16:37] MED LIST changes: +AMLO-211 PO; +CLOT15CR6 TP; +PRED10TA14 PO
--- NOTE | 2020-07-07 17:10 | NUR ---
PATIENT WHEELED BACK FROM TRIAGE WITH CHIEF C/O GLF. PATIENT STATES SHE FELL OUTSIDE HER APARTMENT FRIDAY, PATIENT UNABLE TO GET UP SO SHE 'ROLLED DOWN THE HILL OVER SOME ROCKS, GOT TO MY KNEES AND CRAWLED OVER A CEMENT SLAB AND THEN WALKED UP STAIRS TO HER APARTMENT." PATIENT REPORTS PAIN WHEN SITTING AND WALKING, AND STATES HER LEGS BUCKLE WHEN SHE TRIES TO WALK. VSS, PATIENT GRIMACING WITH PAIN, ABLE TO SPEAK IN FULL SENTENCES, SIDE RAILS UP X2, CALL LIGHT WITHIN REACH.
[2020-07-07] MEDS ORDERED: OXYcodone/APAP 5/325MG TABLET ONE (17:49)
[2020-07-07] MEDS ORDERED: OXYcodone/APAP 5/325MG TABLET PO ONE (18:00)
--- NOTE | 2020-07-07 18:58 | NUR ---
report received from day shift RN. pt calm and cooperative, no acute distress at this time. call light within reach.
--- NOTE | 2020-07-07 19:20 | NUR ---
pt awake and alert, MD to bedside to talk with pt. she was assisted to the bedpan and voided. pt states she feels way better. pt on cr monitor, and c/o pain to lower back at 6/10.
[2020-07-07] MEDS ORDERED: HYDROmorphone 1 MG/ML, 1ML INJ ONE (19:51)
[2020-07-07] MEDS ORDERED: ONDANSETRON ODT 4 MG ONE (19:52)
[2020-07-07] MEDS ORDERED: HYDROmorphone 2 MG/ML, 1ML IM ONE (20:00)
[2020-07-07] MEDS ORDERED: ONDANSETRON ODT 4 MG PO ONE (20:00)
--- NOTE | 2020-07-07 20:27 | NUR ---
pt medicated and given IM shot and po anti nausea meds. tolerated well. d/c instructions up. 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 [place] ordered for pt.
[2020-07-07 20:46] VITALS: BP 130/74
== END 2020-07-07 21:14 | disposition home or self-care (01) ==
LOC: ED 17:43
DX: S32.10XA Unspecified fracture of sacrum, initial encounter for closed fracture (principal); I25.2 Old myocardial infarction; I10 Essential (primary) hypertension; E11.65 Type 2 diabetes mellitus with hyperglycemia; Z76.0 Encounter for issue of repeat prescription; Z86.73 Personal history of transient ischemic attack (TIA), and cerebral infarction without residual deficits; Z86.39 Personal history of other endocrine, nutritional and metabolic disease; Z90.710 Acquired absence of both cervix and uterus; W01.0XXA Fall on same level from slipping, tripping and stumbling without subsequent striking against object, initial encounter; Y93.89 Activity, other specified; Y92.89 Other specified places as the place of occurrence of the external cause; Y99.8 Other external cause status
CPT/HCPCS: 72110; 72220; 82962; 96372; 99284; J1170; Q0162